=== PATIENT | female | born 1990 | race Caucasian/White ===

== ENCOUNTER 2021-03-20 21:15 | Observation (INO) | payer BC, SELFPAY ==
--- NOTE | 2021-03-20 21:15 | OBADM ---
This patient, Neida Gardner, admitted to the OB room Labor/Delivery/Recovery 106 for observation. Patient/family oriented to hospital policies and general routines including ID bracelet, bed and alarms, visiting hours, pain management, procedures, bathroom and other care routines, personal items, smoking policy, room service/diet, and visiting hours. Patient/Family are encouraged to report perceived risks to care and to ask questions if they do not understand what they are told or what they should do.
[2021-03-20 21:29] VITALS: BP 130/69; PULSE 101; RESP 20; TEMP 37.1
[2021-03-20 22:00] VITALS: BP 107/68; PULSE 96
[2021-03-20 22:23] VITALS: BMI 28.3
--- NOTE | 2021-04-17 18:47 | PM.OBTRLD ---
OB - Triage/Final Diagnosis Visit Information Comments/Additional reasons for admission: I have assessed the risk for this patient, Neida Gardner, and determined that she would benefit from observation care. Final Diagnosis (1) False labor: Code(s): O47.9 - False labor, unspecified Status: Acute
== END 2021-03-20 22:54 | disposition home or self-care (01) ==
PROVIDERS: Admitting Provider Obstetrics & Gynecology; Visit Provider Obstetrics & Gynecology
DX: O47.03 False labor before 37 completed weeks of gestation, third trimester (principal); Z3A.36 36 weeks gestation of pregnancy
CPT/HCPCS: 84112; G0378; G0379

== ENCOUNTER 2021-03-31 14:03 | Outpatient (CLI) | payer BC, SELFPAY ==
[2021-03-31 14:30] VITALS: BP 123/84; PULSE 92
[2021-03-31 14:45] VITALS: BP 122/84; PULSE 101
[2021-03-31 14:47] LABS: Basophils Percent Auto 0.2 % (0.2-1.2); Eosinophils Absolute Auto 0.1 K/mm3 (0-0.3); Eosinophils Percent Auto 0.6 % (0-4.4); Hematocrit 32.2 % (37.0-47.0); Hemoglobin 10.5 g/dL (12.0-15.0); Immature Granulocyte Absolute 0.04 K/mm3 (0.00-0.031); Immature Granulocyte Percent A 0.4 % (0-0.5); Lymphocytes Absolute Auto 1.94 K/mm3 (0.9-3.2); Lymphocytes Percent Auto 20.1 % (18.3-44.2); Mean Corpuscular HGB Conc 32.6 g/dl (32-36); Mean Corpuscular Hemoglobin 28.2 pg (26-34); Mean Corpuscular Volume 86.3 fl (80-100); Mean Platelet Volume 11.2 fl (7.4-10.4); Monocytes Absolute Auto 0.8 K/mm3 (0.1-0.6); Monocytes Percent Auto 7.8 % (2.6-8.5); Neutrophils Absolute Auto 6.8 K/mm3 (1.3-6.7); Neutrophils Percent Auto 70.9 % (45.5-73.1); Platelet Count Result 326 k/mm3 (150-375); Red Blood Count 3.73 M/mm3 (4.2-5.4); Red Cell Distribution Width 13.2 % (11.5-14.5); White Blood Count 9.7 K/mm3 (4.5-10.0)
[2021-03-31 14:55] LABS: Add Urine Microscopic? YES; Appearance Urine Cloudy (Clear); Bacteria Urine 2+ /hpf; Bilirubin Urine Negative (Negative); Blood Urine Negative (Negative); Color Urine Yellow (Yellow); Glucose Urine UA Negative (Negative); Ketones Urine Negative (Negative); Leukocyte Esterase Ur Negative LEU/UL (NEGATIVE); Mucus Urine Rare /lpf; Nitrate Urine Negative (Negative); Protein Urine 1+ mg/dL (Negative); RBC Urine 0-2 /hpf (0-2); Specific Grav Ur 1.019 (1.001-1.035); Squamous Epithelial Cell Urine Moderate /hpf (Few); Urobilinogen Urine Negative mg/dL (<2.0); WBC Urine 0-3 /hpf (0-3)
[2021-03-31 14:57] LABS: Alanine Aminotransferase 10 U/L (4-35); Albumin Level 3.4 g/dL (3.5-5.1); Alkaline Phosphatase 203 U/L (38-126); Anion Gap 7 mmol/L (8-16); Aspartate Amino Transferase 23 U/L (14-36); Bilirubin,Total 0.3 mg/dL (0.2-1.3); Blood Urea Nitrogen 16 mg/dL (7-17); Calcium 9.1 mg/dL (8.4-10.2); Carbon Dioxide 21 mmol/L (22-30); Chloride 108 mmol/L (98-107); Estimated Glomerular Filt Rate > 60; Glucose 121 mg/dL (65-105); Potassium 4.4 mmol/L (3.4-5.0); Sodium 136 mmol/L (137-145); Uric Acid 5.1 mg/dL (2.5-7.5)
[2021-03-31 15:00] VITALS: BP 111/71; PULSE 93
[2021-03-31 15:15] VITALS: BP 116/74; PULSE 95
[2021-03-31 15:20] VITALS: BP 111/71; PULSE 90; PULSE 95
[2021-03-31 15:27] LABS: Creatinine Urine 127.8 mg/dL; Total Protein Urine Random 9 mg/dL; Ur Ttl Prot Creatinine Ratio 0.07 mg/mg (0-0.20)
[2021-03-31 15:59] LABS: Hepatitis B Surface Antigen Negative (Negative)
--- NOTE | 2021-03-31 16:04 | PC.NURSE ---
amos Edward CNM reported HIP lab result. okay to discharge
== END 2021-03-31 15:50 | disposition home or self-care (01) ==
LOC: ANHOBOP 14:06 → ANHOBPP 14:07
PROVIDERS: Advanced Practice Midwife; Visit Provider Advanced Practice Midwife
DX: O13.9 Gestational [pregnancy-induced] hypertension without significant proteinuria, unspecified trimester (principal); Z3A.00 Weeks of gestation of pregnancy not specified
CPT/HCPCS: 36415; 59025; 80053; 81001; 82570; 84156; 84550; 85025; 87340; 99199

== ENCOUNTER 2021-04-03 17:30 | Outpatient (CLI) | payer BC, SELFPAY ==
[2021-04-03 17:45] VITALS: BP 127/77; PULSE 94
[2021-04-03 18:09] VITALS: TEMP 36.7
[2021-04-03 18:29] VITALS: BP 127/77; PULSE 89
== END 2021-04-03 18:30 ==
LOC: ANHOBOP 18:18 → ANHLDR 18:19
PROVIDERS: Visit Provider Obstetrics & Gynecology
DX: O41.8X90 Other specified disorders of amniotic fluid and membranes, unspecified trimester, not applicable or unspecified (principal); Z3A.00 Weeks of gestation of pregnancy not specified
CPT/HCPCS: 59025; 84112; 99199

== ENCOUNTER 2021-04-10 20:33 | Observation (INO) | payer BC, SELFPAY ==
--- NOTE | 2021-04-10 23:15 | OBADM ---
This patient, Neida Gardner, admitted to the OB room Labor/Delivery/Recovery 105 for observation. Patient/family oriented to hospital policies and general routines including ID bracelet, bed and alarms, visiting hours, pain management, procedures, bathroom and other care routines, personal items, smoking policy, room service/diet, and visiting hours. Patient/Family are encouraged to report perceived risks to care and to ask questions if they do not understand what they are told or what they should do.
--- NOTE | 2021-04-14 07:14 | P.PNOB_ITS ---
OB - Triage/Final Diagnosis Visit Information Date of evaluation: 04/14/21 Reason for evaluation: threatened labor Comments/Additional reasons for admission: I have assessed the risk for this patient, Neida Lacey Gardner, and determined that she would benefit from obse rvation care.
--- NOTE | 2021-04-14 07:14 | WPDOBADMIT ---
Obstetrics - Admit Note Admission Note: record reviewed. No pertinent additions to the history and/or any subsequent changes in the physical findings that are not consistent with the expected course of the were found. MIL cervadil GDM diet controlled SVE 1/thick soft, plan pitocin this afternoon Additions to the history and/or subsequent changes in the physical findings follow. None.
== END 2021-04-10 23:31 | disposition home or self-care (01) ==
PROVIDERS: Admitting Provider Obstetrics & Gynecology; Visit Provider Obstetrics & Gynecology
DX: O47.1 False labor at or after 37 completed weeks of gestation (principal); Z3A.39 39 weeks gestation of pregnancy
CPT/HCPCS: G0378; G0379

== ENCOUNTER 2021-04-14 00:02 | Inpatient (IN) | payer BC, SELFPAY ==
[2021-04-14] VITALS (38 sets, daily range): BP systolic 108–129; BP diastolic 61–95; PULSE 62–147; RESP 18; TEMP 36.4–36.9; BMI 29.5
--- NOTE | 2021-04-14 00:02 | LDADM ---
This patient, Neida Gardner, was admitted to Labor/Delivery/Recovery 108 on 04/14/21 at 00:02. Plans for labor, pain management and were discussed with patient. Patient/family oriented to hospital policies and general routines including ID bracelet, bed and alarms, visiting hours, pain management, procedures, bathroom and other care routines, personal items, smoking policy, room service/diet and guest tray routines, security routines, and visiting hours. Patient/Family are encouraged to report perceived risks to care and to ask questions if they do not understand what they are told or what they should do. See OBIX for further documentation.
[2021-04-14] MEDS: DINOPROSTONE 10 MG VAG INSERT VAGINAL (00:59)
[2021-04-14 01:09] LABS: Glucose Point of Care 85 mg/dl (65-105)
[2021-04-14 01:11] LABS: Basophils Percent Auto 0.2 % (0.2-1.2); Eosinophils Absolute Auto 0.1 K/mm3 (0-0.3); Eosinophils Percent Auto 0.7 % (0-4.4); Hematocrit 32.3 % (37.0-47.0); Hemoglobin 10.8 g/dL (12.0-15.0); Immature Granulocyte Absolute 0.05 K/mm3 (0.00-0.031); Immature Granulocyte Percent A 0.5 % (0-0.5); Lymphocytes Absolute Auto 2.91 K/mm3 (0.9-3.2); Lymphocytes Percent Auto 27.2 % (18.3-44.2); Mean Corpuscular HGB Conc 33.4 g/dl (32-36); Mean Corpuscular Hemoglobin 27.9 pg (26-34); Mean Corpuscular Volume 83.5 fl (80-100); Mean Platelet Volume 11.8 fl (7.4-10.4); Monocytes Percent Auto 9.5 % (2.6-8.5); Neutrophils Absolute Auto 6.6 K/mm3 (1.3-6.7); Neutrophils Percent Auto 61.9 % (45.5-73.1); Platelet Count Result 333 k/mm3 (150-375); Red Blood Count 3.87 M/mm3 (4.2-5.4); Red Cell Distribution Width 14.3 % (11.5-14.5); White Blood Count 10.7 K/mm3 (4.5-10.0)
--- NOTE | 2021-04-14 02:24 | WPDANESEPP ---
Anes - Eval Pre Procedure Procedure: Labor epidural Date/Time: 04/14/21 02:24 Surgeon: Jenna Preop Diagnosis: ABD pain with contractions Pre Op Diagnosis: Ind Patient Data Age: 30 Gender: F Height: 5 ft 4 in Weight: 78 kg Last Vital Signs Temp 98 F 04/14/21 00:53 Pulse 80 04/14/21 02:15 Resp 18 04/14/21 00:53 BP 121/78 04/14/21 02:15 Allergies Allergy/AdvReac Type Severity Reaction Status Date / Time Penicillins Allergy Hives Verified 03/17/21 14:38 Sulfa (Sulfonamide Allergy Hives Verified 03/17/21 14:38 Antibiotics) Home Medications Medication Instructions Recorded Confirmed Type prenat.vits,swetha,[id number] 1 tablet PO HS 03/17/21 03/20/21 History Laboratory Tests 04/14/21 04/14/21 04/14/21 00:38 00:38 00:53 WBC 10.7 K/mm3 H K/mm3 (4.5-10.0) RBC 3.87 M/mm3 L M/mm3 (4.2-5.4) Hgb 10.8 g/dL L g/dL (12.0-15.0) Hct 32.3 % L % (37.0-47.0) MCV 83.5 fl fl (80-100) MCH 27.9 pg pg (26-34) MCHC 33.4 g/dl g/dl (32-36) RDW 14.3 % % (11.5-14.5) Plt Count 333 k/mm3 k/mm3 (150-375) MPV 11.8 fl H fl (7.4-10.4) Immature Gran % (Auto) 0.5 % % (0-0.5) Neut % (Auto) 61.9 % % (45.5-73.1) Lymph % (Auto) 27.2 % % (18.3-44.2) Sargent % (Auto) 9.5 % H % (2.6-8.5) Eos % (Auto) 0.7 % % (0-4.4) Baso % (Auto) 0.2 % % (0.2-1.2) Lymph # (Auto) 2.91 K/mm3 K/mm3 (0.9-3.2) Sargent # (Auto) 1.0 K/mm3 H K/mm3 (0.1-0.6) Eos # (Auto) 0.1 K/mm3 K/mm3 (0-0.3) Baso # (Auto) 0.0 K/mm3 K/mm3 (0.0-0.1) Abs Immat Gran (auto) 0.05 K/mm3 H K/mm3 (0.00-0.031) Absolute Neuts (auto) 6.6 K/mm3 K/mm3 (1.3-6.7) Absolute Nucleated RBC 0.0 K/mm3 K/mm3 (0.0-0.012) Nucleated RBC % 0.0 % % (0.0-0.2) POC Capillary Glucose 85 mg/dl mg/dl (65-105) RPR Pending Patient hx anesthesia problems: none Family hx anesthesia problems: none PMFSH Past Medical History Medical History Overweight (BMI 25.0-29.9) and not yet delivered Family History Family History Grandparent Alzheimer disease Pancreatic adenocarcinoma Skin cancer (melanoma) Cerebrovascular accident Social History Social History Substance use: never Spiritual care concerns: No Exam Day of Procedure 04/14/21 02:24 Patient weight: overweight Airway: Mallampati scale class II Neurological: alert and oriented
[2021-04-14 04:13] LABS: Glucose Point of Care 84 mg/dl (65-105)
[2021-04-14 08:23] LABS: Glucose Point of Care 102 mg/dl (65-105)
[2021-04-14 08:57] LABS: Rapid Plasma Reagin Non-Reactive (NonReactive)
[2021-04-14 12:11] LABS: Glucose Point of Care 93 mg/dl (65-105)
[2021-04-14] MEDS: LACTATED RINGERS 1,000 ML 125 ML IV CONT ×2 (13:45→23:26)
[2021-04-14] MEDS: OXYTOCIN 30 UNITS/NS 500 ML 30 UNITS/500 ML BAG 125 UNITS IV CONT (14:02)
--- NOTE | 2021-04-14 14:36 | PM.OBPNLAB ---
Pain Control Date/time seen: 04/14/21 14:36 sve 1-2/60/-2 AROM min amount of clear odorless fluid
[2021-04-14 17:05] LABS: Glucose Point of Care 83 mg/dl (65-105)
[2021-04-14 20:50] LABS: Glucose Point of Care 78 mg/dl (65-105)
[2021-04-15] VITALS (125 sets, daily range): BP systolic 89–139; BP diastolic 49–123; PULSE 64–185; RESP 14–20; TEMP 36.6–37.4; O2SAT 95–100
[2021-04-15] MEDS: ONDANSETRON INJ 4 MG/2 ML VIAL IV PUSH (00:52)
[2021-04-15] MEDS: fentaNYL CITRATE INJ (*CRX) 100 MCG/2 ML VIAL 50 MCG IV PUSH (00:54)
[2021-04-15 02:23] LABS: Glucose Point of Care 118 mg/dl (65-105)
[2021-04-15] MEDS: LACTATED RINGERS 1,000 ML 100 ML IV CONT (03:01)
[2021-04-15 05:02] LABS: Glucose Point of Care 116 mg/dl (65-105)
[2021-04-15 07:38] LABS: Glucose Point of Care 113 mg/dl (65-105)
[2021-04-15] MEDS: miSOPROStol 200 MCG TABLET 1000 MCG (09:26)
[2021-04-15] MEDS: OXYTOCIN 30 UNITS/NS 500 ML 30 UNITS/500 ML BAG 6 UNITS IV CONT ×2 (09:26→09:32)
--- NOTE | 2021-04-15 09:30 | P.PCNOB_ITS ---
OB - Delivery Note Procedure Delivery date: 04/15/21 Procedure: vaginal delivery events: Gestational Diabetes Intrapartal events: None Induction method: AROM, per pitocin protocol and per cervidil protocol Delivery monitor: external FHT, external uterine and internal uterine Route of delivery: Episiotomy description: None Laceration Description: Labial (bilateral) Delivery repair: vicryl Specimen: Yes Quantitative Blood Loss (ml): 300 Anesthesia type: Epidural Disposition: floor [place] Baby Date of : 04/15/21 Time of : 09:08 Weeks of gestation at delivery: 40 gender: Male presentation: vertex position: Left Occiput Anterior Placenta delivery description: Manual Removal cord vessel description: 3 Vessels, Clamped/Cut and Around Extremity x1 score five minutes: 9
[2021-04-15] MEDS: BENZOCAINE 20% AER SPR (*SP) 56 GM CAN 1 SPRAY TOPICAL (11:36)
[2021-04-15] MEDS: WITCH HAZEL 40 PADS 1 PAD TOPICAL (11:36)
[2021-04-15] MEDS: IBUPROFEN 600 MG TABLET PO ×2 (14:27→20:54)
--- NOTE | 2021-04-15 15:05 | PC.NURSE ---
Mother called out for assist with feeding. Reviewed feeding cues, frequencies, duration of feedings, feeding elimination flow sheet, and signs of adequate intake. Demonstrated stimulation techniques to wake infant for feeding. Assisted with infant to breast. Reviewed positioning/alignment in cross cradle, holding breast in ?U? hold and guided asymmetrical latch on. Mother reports she can only feed on right breast due to IV in left arm. Infant appears to have a slightly tight frenulum. Several attempts before infant able to latch correctly and draw nipple in deeply. Infant nursed eagerly, with steady draws and occasional swallowing followed by pausing. Reviewed signs of a correct latch, effective nursing and suck swallow ratio. Infant would slip to shallow latch, mother reports tenderness. Demonstrated how to adjust latch more deeply while feeding. Mother reports she can feel change in latch and has more tugging than tenderness. Nipple care reviewed of lanolin after feedings, warm compresses and gel pads as needed. Suggested mother stimulate while feeding to increase stimulate, increase intake and to assist with maintaining deep latch. Instructed mother to call out for RN assistance if she is unable to latch infant for feeding or she has discomfort with nursing. Instructed feeding should be initiated three hours from start of last feeding or if feeding cues are noted before. Mother voiced understanding of information shared.
--- NOTE | 2021-04-15 19:26 | PC.NURSE ---
1245-Patient transferred to post room #276 via wheelchair. Support person present. Oriented to unit, room, information board, rooming in, admission packet and security measures. Patient verbalizes understanding.
[2021-04-16 04:40] VITALS: BP 101/63; PULSE 93; RESP 13; TEMP 36.6; O2SAT 97
[2021-04-16] MEDS: IBUPROFEN 600 MG TABLET PO ×2 (04:43→16:40)
[2021-04-16 05:45] LABS: Hematocrit 27.6 % (37.0-47.0); Hemoglobin 8.9 g/dL (12.0-15.0)
--- NOTE | 2021-04-16 07:47 | PM.OBPNVD ---
OB - PN: Subj Subjective Date/time seen: 04/16/21 07:47 Patient comments: no complaints baby status: doing well OB - PN: Obj Data Labs CBC & Chem 7: 04/16/21 04:53 Labs: Laboratory Results - last 24 hr 04/16/21 04:53 Hgb 8.9 L Hct 27.6 L OB - PN A/P Plan day: 1 Plan: routine care Time Spent With Patient Time: Total time spent is greater than 50% in coordination of care (as documented) at patient's floor/unit and/or counseling patient: Review of Systems Review of Systems: All systems reviewed & are unremarkable except as noted in HPI and below Exam Const: General: cooperative Nutritional Appearance: average body habitus Orientation/consciousness: oriented to person Psych: Thought process: Normal thought process present Thought content: Yes Normal thought content present Insight: Good insight present (Psych) Judgement: Good judgement present (Psych)
[2021-04-16 09:30] VITALS: BP 101/54; PULSE 83; RESP 16; TEMP 36.4; O2SAT 99
--- NOTE | 2021-04-16 09:46 | WPDANLDPN2 ---
Anes-Prog Note L&D Date/Time: 04/16/21 09:46 Comfortable throughout: labor and delivery Neuraxial method: epidural Epidural/Spinal procedure site: clean & non-tender Neuro status: Neuro function grossly intact. Cardiovascular status: normal Respiratory status: normal Airway patency: baseline Mental status: baseline Post-Op hydration status: normal Vital Signs: Last Vital Signs Temp 36.6 C 04/16/21 04:40 Pulse 93 04/16/21 04:40 Resp 13 04/16/21 04:40 BP 101/63 04/16/21 04:40 Pulse Ox 97 04/16/21 04:40 Pain score (VAS): 11/29 Post-procedural complaints: none Patient feedback: Patient satisfied with anesthetic care.
[2021-04-16] MEDS: ACETAMINOPHEN 325 MG TABLET 650 MG PO (10:04)
[2021-04-16] MEDS: POLYSACCHARIDE IRON COMPLEX 150 MG CAPSULE PO ×2 (10:04→16:40)
[2021-04-16] MEDS: MULTIVIT/MIN/PREN/FOL AC/IRON TABLET 1 TAB PO (10:04)
[2021-04-16] MEDS: DOCUSATE SODIUM 100 MG CAPSULE PO ×2 (10:04→16:40)
--- NOTE | 2021-04-16 10:45 | PC.NURSE ---
Consult with pt., mother reports she began supplementing after during the night. Mother was concerned was not satisfied with . Reviewed adequate signs of breastmilk intake, infant feeding cues, frequencies, duration of feedings and feeding elimination flow sheet. Requested mother to call out for RN/LC assistance next feeding. Instructed feeding should be initiated three hours from start of last feeding or if feeding cues are noted before. Mother voiced understanding of information shared.
--- NOTE | 2021-04-16 14:45 | PC.NURSE ---
Consult with pt., mother has not called out for assist with feeding, reporting infant is more eager and latching without difficulties. Mother states she will continue to supplement after all breastfeedings until her milk is in, her plan is to breast and bottle feed. Discussed stimulation and supply. Offered to set up mother with pumping, she does not wish to pump. Mother is feeding as required and waking to feed if needed. Infant is currently meeting outcomes for weight, output, jaundice and feeding frequencies. Mother states she feels confident to continue current feeding plan of breast/bottle at home. Reviewed transition to breast milk, signs of adequate intake, and engorgement/relief. Instructed to call ICP if intake/output less than required. Reviewed regular medications mother is taking. Information provided per Michelle. Reviewed community resources on the [employer] website and in the Mom/Baby guide. Information on outpatient services provided. Mother has no further questions at this time.
[2021-04-16 18:24] VITALS: BP 107/69; PULSE 86; RESP 16; TEMP 36.7
[2021-04-17] MEDS: IBUPROFEN 600 MG TABLET PO ×2 (00:15→07:23)
[2021-04-17 07:15] VITALS: BP 95/62; PULSE 90; RESP 20; TEMP 36.7
[2021-04-17] MEDS: DOCUSATE SODIUM 100 MG CAPSULE PO (07:23)
[2021-04-17] MEDS: POLYSACCHARIDE IRON COMPLEX 150 MG CAPSULE PO (07:23)
[2021-04-17] MEDS: MULTIVIT/MIN/PREN/FOL AC/IRON TABLET 1 TAB PO (07:23)
[2021-04-17] MEDS: MEASLES,MUMPS,RUBELLA VACCINE 0.5 ML VIAL SUB-Q (07:29)
--- NOTE | 2021-04-17 10:18 | PM.OBPNVD ---
OB - PN: Subj Subjective Date/time seen: 04/17/21 10:18 Patient comments: no complaints baby status: doing well OB - PN: Obj Data Labs CBC & Chem 7: 04/16/21 04:53 OB - PN A/P Plan day: 2 Plan: routine care and discharge home (F/U in 4 weeks) Time Spent With Patient Time: Total time spent is greater than 50% in coordination of care (as documented) at patient's floor/unit and/or counseling patient: Time with patient: less than 15 minutes Review of Systems Review of Systems: All systems reviewed & are unremarkable except as noted in HPI and below Exam Narrative: Exam Narrative: Fundus firm and vaginal flow controlled. No lower ext redness, warmth, or edema. Negative homans. Const: General: comfortable Chest: Breast/axilla inspection: normal inspection of the breasts Resp: Effort & Inspection: normal respiratory effort Cardio: Rate: regular rate GI: GI Palp: Yes Soft to palpation Psych: Appearance: grossly normal Affect: normal affect Attitude: cooperative Thought content: Yes Normal thought content present Judgement: Good judgement present (Psych)
--- NOTE | 2021-04-17 10:26 | PM.OBDSVD ---
DS: Admitting Diagnosis Admitting Diagnosis Admitting Diagnosis: Labor OB - DS: Summary OB Procedures : None OB Procedures Intrapartum: Spontaneous Vag Delivery OB Procedures: : None Time Spent with Patient Time attestation: Total time spent providing and/or coordinating discharge services: DS: Data Data Completed and Pending Pending studies at discharge: Pending at discharge 04/15/21 09:21 Surgical [PTH] Routine Discharge Plan Discharge Attending physician on discharge: Anne West Consulting providers: Sim Foster Discharging Clinician: Ynes Beyer Patient Disposition: Home, Self-Care Activity: pelvic rest Diet: as tolerated Patient Instructions: Antibiotic Form Stand Alone Forms: General Discharge Information Follow-up/Referrals: Anne West MD [Physician] - Discharge Medications: New polysaccharide iron complex 150 mg iron Capsule 150 mg PO BIDWM Qty: 60 RF: 0 Continued prenat.vits,swetha,[id number] Tablet 1 tablet PO HS RF: 0 Date of admission: 04/14/21 00:02 Primary Care Provider: PHYSICIAN,ASSOCIATE ART DIRECTOR Admitting Provider: Anne West Attending physician on admission: Anne West Condition: Stable
--- NOTE | 2021-04-17 10:58 | PC.NURSE ---
Patient viewed the discharge video Mother & Baby Care, The First Two Weeks . Patient was given the opportunity and encouraged to ask questions. Patient verbalized understanding of information shared and has been given the mother/baby guide for home reference.
== END 2021-04-17 13:50 | disposition home or self-care (01) | DRG 807 ==
LOC: ANHLDR 00:11 → ANHOB2 04-15 13:07
PROVIDERS: Advanced Practice Midwife; Admitting Provider Obstetrics & Gynecology; Visit Provider Obstetrics & Gynecology
DX: O24.429 Gestational diabetes mellitus in childbirth, unspecified control (principal); Z37.0 Single live birth; O70.0 First degree perineal laceration during delivery; O69.2XX0 Labor and delivery complicated by other cord entanglement, with compression, not applicable or unspecified; Z3A.40 40 weeks gestation of pregnancy
CPT/HCPCS: 36415; 82948; 85014; 85018; 85025; 86592; 86850; 86900; 86901; 88307; 90710; A9270; J2405; J2590; J2795; J3010; J3370; J7120

== ENCOUNTER 2021-08-01 19:35 | Emergency (ER) | payer BC, SELFPAY ==
[2021-08-01 19:47] VITALS: BP 124/72; PULSE 75; RESP 16; TEMP 37.1; O2SAT 100
--- NOTE | 2021-08-01 20:00 | ED.ABDPAIN ---
HPI - Abdominal Pain General Stated Complaint: chest pain Time Seen by Provider: 08/01/21 20:02 Source: patient and RN notes reviewed Mode of arrival: ambulatory Limitations: no limitations History of Present Illness HPI narrative: 30-year-old female presents to the [facility] with complaints of epigastric and right upper quadrant pain for the last hour hour and a half. Worse with deep breathing. Denies fevers. No nausea or vomiting. Describes it as a very sharp pain in the epigastric and right upper quadrant pain denies any past medical or surgical history. No urinary symptoms. Denies taking any medication to help with her symptoms MD elicited complaint: abdominal pain Related Data Home Medications Medication Instructions Recorded Confirmed prenat.vits,swetha,[id number] 1 tablet PO HS 03/17/21 03/20/21 sertraline mg 08/01/21 Allergies Allergy/AdvReac Type Severity Reaction Status Date / Time Penicillins Allergy Hives Verified 03/17/21 14:38 Sulfa (Sulfonamide Allergy Hives Verified 03/17/21 14:38 Antibiotics) Review of Systems Constitutional: Constitutional: Reports no additional constitutional complaints, Denies chills and Denies fever(s) Eyes: Eyes: Reports no additional eye complaints ENT: Reports system reviewed and no additional complaints, except as documented Cardiovascular: Cardiovascular: Reports no additional cardiovascular complaints and Denies chest pain Respiratory: Respiratory: Reports no additional respiratory complaints, Denies cough and Denies dyspnea Gastrointestinal: Gastrointestinal: Reports no additional gastrointestinal complaints, Denies abdominal pain, Denies nausea and Denies vomiting Genitourinary: Genitourinary: Reports no additional female genitourinary complaints Musculoskeletal: Musculoskeletal: Reports no additional musculoskeletal complaints Integumentary/Breasts: Skin/Breast: Reports system reviewed and no additional complaints, except as docu Neurologic: Reports system reviewed and no additional complaints, except as documented Psychiatric: Psychiatric: Reports no additional psychiatric complaints Allergic/Immunologic: Allergic/Immunologic: Reports no additional allergic/immunologic complaints PMFSH Past Medical History Medical History (Updated 08/01/21 @ 20:08 by Brittany Perez) Overweight (BMI 25.0-29.9) and not yet delivered Surgical History Surgical History (Updated 08/01/21 @ 20:04 by Brittany Perez) No significant past surgical history Family History Family History Grandparent Alzheimer disease Pancreatic adenocarcinoma Skin cancer (melanoma) Cerebrovascular accident Social History Social History Smoking status: Never smoker Substance use: never Spiritual care concerns: No Comments At the time of my signature, I reviewed and agree with the nursing past medical, surgical, social, and family history. There is no relevant family history pertinent to the patient complaint. Exam Const: General: healthy appearing, no acute distress and alert Nutritional Appearance: well nourished Orientation/consciousness: patient oriented x3 Limitations: no limitations HENMT: Head: normal to inspection Eyes: Pupils: Equal, round and reactive pupils present Neck: Neck: normal visual inspection, no lymphadenopathy and no meningeal signs Chest: Chest palpation & inspection: normal inspection of the chest Resp: Effort & Inspection: normal respiratory effort and no use of accessory muscles Auscultation: clear to auscultation bilaterally, no crackles, no rales, no rhonchi and no wheezes Cardio: Rate: regular rate Rhythm: regular rhythm GI: GI Palp: Yes Soft to palpation, Yes Tenderness to palpation present (GI) (Epigastric, right upper quadrant) and No Rebound tenderness present Auscultation: normal bowel sounds : General: Yes no CV
== END 2021-08-01 20:06 | disposition short-term general hospital (02) ==
PROVIDERS: Emergency Provider Nurse Practitioner
DX: R10.13 Epigastric pain (principal); R10.11 Right upper quadrant pain; R07.9 Chest pain, unspecified
CPT/HCPCS: 99212; G0463

== ENCOUNTER 2022-03-08 11:28 | Emergency (ER) | payer BC, SELFPAY ==
[2022-03-08 11:37] VITALS: BP 100/67; PULSE 78; RESP 16; TEMP 37; O2SAT 99
--- NOTE | 2022-03-08 11:52 | ED.URI ---
HPI - URI/Sore Throat General Chief Complaint: Upper Respiratory Infection Stated Complaint: wade/cough/congestion Time Seen by Provider: 03/08/22 11:52 Source: patient, family, RN notes reviewed and old records reviewed Mode of arrival: ambulatory Limitations: no limitations History of Present Illness HPI Narrative: 31-year-old female presents to the [facility] after waking up and having headache cough and sinus congestion. States last weekend she was exposed to people with the flu. No treatment prior to arrival. Denies fevers, chest pain, abdominal pain MD elicited complaint: rhinorrhea and nasal congestion Related Data Home Medications Medication Instructions Recorded Confirmed prenat.vits,swetha,[id number] 1 tablet PO HS 03/17/21 03/20/21 progesterone micronized mg 03/08/22 Allergies Allergy/AdvReac Type Severity Reaction Status Date / Time Penicillins Allergy Hives Verified 03/17/21 14:38 Sulfa (Sulfonamide Allergy Hives Verified 03/17/21 14:38 Antibiotics) Review of Systems Review of Systems: All systems reviewed & are unremarkable except as noted in HPI and below Constitutional: Constitutional: Reports no additional constitutional complaints, Denies chills, Denies fever(s) and Denies headache(s) Eyes: Eyes: Reports no additional eye complaints ENT: Reports as per HPI, Denies vertigo, Denies dizziness, Denies headache(s), Reports nasal congestion and Reports sore throat Cardiovascular: Cardiovascular: Reports no additional cardiovascular complaints, Denies chest pain, Denies syncope, Denies rapid heart rate and Denies dyspnea Respiratory: Respiratory: Reports no additional respiratory complaints, Denies cough, Denies dyspnea and Denies wheezing Gastrointestinal: Gastrointestinal: Reports no additional gastrointestinal complaints, Denies abdominal pain, Denies diarrhea, Denies nausea and Denies vomiting Musculoskeletal: Musculoskeletal: Reports as per HPI, Denies back pain, Reports myalgias and Denies numbness Integumentary/Breasts: Skin/Breast: Reports system reviewed and no additional complaints, except as docu Neurologic: Reports system reviewed and no additional complaints, except as documented, Denies vertigo, Denies dizziness, Denies syncope, Denies headache(s), Denies focal weakness and Denies numbness Psychiatric: Psychiatric: Reports no additional psychiatric complaints Allergic/Immunologic: Allergic/Immunologic: Reports no additional allergic/immunologic complaints PMFSH Past Medical History Medical History (Updated 03/08/22 @ 12:18 by Brittany Perez APRN) Overweight (BMI 25.0-29.9) and not yet delivered Surgical History Surgical History No significant past surgical history Family History Family History Grandparent Alzheimer disease Pancreatic adenocarcinoma Skin cancer (melanoma) Cerebrovascular accident Social History Social History Smoking status: Never smoker Substance use: never Spiritual care concerns: No Comments At the time of my signature, I reviewed and agree with the nursing past medical, surgical, social, and family history. There is no relevant family history pertinent to the patient complaint. Exam Const: General: cooperative, healthy appearing, no acute distress, well developed and alert Nutritional Appearance: well nourished Orientation/consciousness: patient oriented x3 Limitations: no limitations HENMT: Head: normal to inspection Ears: external ears normal, TM's normal bilaterally and EAC's normal Eyes: Conjunctivae: conjunctivae normal Pupils: Equal, round and reactive pupils present Neck: Neck: normal visual inspection, no lymphadenopathy and no meningeal signs Chest: Chest palpation & inspection: normal inspection of the chest Resp: Effort & Inspection: normal r
== END 2022-03-08 12:26 | disposition home or self-care (01) ==
PROVIDERS: Emergency Provider Nurse Practitioner
DX: J06.9 Acute upper respiratory infection, unspecified (principal)
CPT/HCPCS: 87804; 99213; G0463

== ENCOUNTER 2022-11-20 18:56 | Observation (INO) | payer BC, SELFPAY ==
[2022-11-20] VITALS (15 sets, daily range): BP systolic 110–122; BP diastolic 68–81; PULSE 92–127; TEMP 36.1; O2SAT 100; BMI 25.9
[2022-11-20] MEDS: DEXTROSE 5%/LACTATED RINGERS 1,000 ML 999 ML IV CONT (19:27)
[2022-11-20] MEDS: ONDANSETRON INJ 4 MG/2 ML VIAL IV PUSH (19:29)
--- NOTE | 2022-11-20 19:38 | PC.NURSE ---
pt came in with c/o nausea and vomiting that started today and is unable to keep anything (food or liquid down). pt spoke with Jack Edward CNM who told her to come in for evaluation. pt also states that she was airam at home every 6 minutes at home. verbal orders received from Jack Edward prior to pt arrival for D5LR bolus, zofran 4mg IV, pepcid 20mg if pt wants it, UA, and monitor. will call with results after bolus of fluid.
[2022-11-20 19:41] LABS: Add Urine Microscopic? YES; Appearance Urine Clear (Clear); Bilirubin Urine Negative (Negative); Blood Urine Negative (Negative); Color Urine Yellow (Yellow); Glucose Urine UA Negative (Negative); Ketones Urine 3+ mg/dL (Negative); Leukocyte Esterase Ur Negative LEU/UL (Negative); Nitrate Urine Negative (Negative); Protein Urine Trace mg/dL (Negative); Specific Grav Ur >= 1.030 (1.001-1.035); Urobilinogen Urine 0.2 mg/dL (<2.0)
[2022-11-20 19:44] LABS: Bacteria Urine Trace /hpf; Mucus Urine Rare /lpf; Squamous Epithelial Cell Urine Moderate /hpf (Few); WBC Urine 0-3 /hpf
--- NOTE | 2022-11-20 19:47 | OBADM ---
This patient, Neida Gardner, admitted to the OB room OB Post 117 for observation. Patient/family oriented to hospital policies and general routines including ID bracelet, bed and alarms, visiting hours, pain management, procedures, bathroom and other care routines, personal items, smoking policy, room service/diet, and visiting hours. Patient/Family are encouraged to report perceived risks to care and to ask questions if they do not understand what they are told or what they should do.
--- NOTE | 2022-11-20 20:31 | PC.NURSE ---
called Jack Edward CNM @2027- updated on pt status. pt feeling much better and ready to d/c home. US reviewed. orders received to d/c home with instructions to call if questions/concerns.
--- NOTE | 2022-11-23 07:38 | PM.OBTRLD ---
OB - Triage/Final Diagnosis Visit Information Date of evaluation: 11/20/22 Reason for evaluation: other (nausea ) Comments/Additional reasons for admission: I have assessed the risk for this patient, Neida Lacey Gardner, and determined that she would benefit from observation care. Evaluation Laboratory results: Laboratory Tests 11/20/22 19:31 Urine Color Yellow Urine Appearance Clear Urine pH 6.0 Ur Specific [place] >= 1.030 Urine Protein Trace Urine Glucose (UA) Negative Urine Ketones 3+ H Ur Blood (Man) Negative Urine Nitrate Negative Urine Bilirubin Negative Urine Urobilinogen 0.2 Leukocyte Esterase Rfl Negative Urine RBC 3-5 H Urine WBC 0-3 Ur Squamous Epith Cells Moderate H Urine Bacteria Trace Urine Mucus Rare
== END 2022-11-20 20:45 | disposition home or self-care (01) ==
PROVIDERS: Advanced Practice Midwife; Admitting Provider Obstetrics & Gynecology; Visit Provider Obstetrics & Gynecology
DX: O26.893 Other specified pregnancy related conditions, third trimester (principal); R11.0 Nausea; O24.419 Gestational diabetes mellitus in pregnancy, unspecified control; Z3A.36 36 weeks gestation of pregnancy
CPT/HCPCS: 81001; 96361; 96374; G0378; G0379; J2405; J7121

== ENCOUNTER 2022-11-29 11:30 | Outpatient (RCR) | payer BC, SELFPAY ==
[2022-10-14 09:09] VITALS: BP 106/64; PULSE 102
[2022-11-29 12:28] VITALS: BP 113/67
== END 2022-12-17 07:38 | disposition home or self-care (01) ==
LOC: ANHOBOP 11:30
PROVIDERS: Visit Provider Advanced Practice Midwife
DX: O24.419 Gestational diabetes mellitus in pregnancy, unspecified control (principal); Z3A.31 31 weeks gestation of pregnancy; Z3A.38 38 weeks gestation of pregnancy
CPT/HCPCS: 59025

== ENCOUNTER 2022-12-06 05:04 | Inpatient (IN) | payer BC, SELFPAY ==
[2022-12-06] VITALS (88 sets, daily range): BP systolic 83–140; BP diastolic 54–123; PULSE 75–119; RESP 16–18; TEMP 36.4–37.3; O2SAT 95–100; BMI 28.4
[2022-12-06 05:47] LABS: Glucose Point of Care 170 mg/dl (65-105)
[2022-12-06 05:57] LABS: Basophils Percent Auto 0.2 % (0.2-1.2); Eosinophils Absolute Auto 0.1 K/mm3 (0-0.3); Eosinophils Percent Auto 0.8 % (0-4.4); Hemoglobin 12.9 g/dL (12.0-15.0); Immature Granulocyte Absolute 0.12 K/mm3 (0.00-0.031); Immature Granulocyte Percent A 1.2 % (0-0.5); Lymphocytes Absolute Auto 1.51 K/mm3 (0.9-3.2); Lymphocytes Percent Auto 14.9 % (18.3-44.2); Mean Corpuscular HGB Conc 33.9 g/dl (32-36); Mean Corpuscular Hemoglobin 29.9 pg (26-34); Mean Corpuscular Volume 88.2 fl (80-100); Mean Platelet Volume 10.1 fl (7.4-10.4); Monocytes Absolute Auto 0.9 K/mm3 (0.1-0.6); Monocytes Percent Auto 9.1 % (2.6-8.5); Neutrophils Absolute Auto 7.5 K/mm3 (1.3-6.7); Neutrophils Percent Auto 73.8 % (45.5-73.1); Platelet Count Result 383 k/mm3 (150-375); Red Blood Count 4.31 M/mm3 (4.2-5.4); Red Cell Distribution Width 15.7 % (11.5-14.5); White Blood Count 10.1 K/mm3 (4.5-10.0)
--- NOTE | 2022-12-06 06:17 | LDADM ---
This patient, Neida Gardner, was admitted to Labor/Delivery/Recovery 104 on 12/06/22 at 05:04. Plans for labor, pain management and were discussed with patient. Patient/family oriented to hospital policies and general routines including ID bracelet, bed and alarms, visiting hours, pain management, procedures, bathroom and other care routines, personal items, smoking policy, room service/diet and guest tray routines, security routines, and visiting hours. Patient/Family are encouraged to report perceived risks to care and to ask questions if they do not understand what they are told or what they should do. See [facility] for further documentation.
[2022-12-06] MEDS: LACTATED RINGERS 1,000 ML 125 ML IV CONT ×2 (06:48→14:10)
[2022-12-06] MEDS: OXYTOCIN 30 UNITS/NS 500 ML 30 UNITS/500 ML BAG IV CONT (06:49)
--- NOTE | 2022-12-06 07:23 | WPDOBADMIT ---
Obstetrics - Admit Note Admission Note: record reviewed. No pertinent additions to the history and/or any subsequent changes in the physical findings that are not consistent with the expected course of the were found. GDMA-2, IOL 2-3/60/-2 AROM moderate amount of clear odorless fluid Additions to the history and/or subsequent changes in the physical findings follow. None.
--- NOTE | 2022-12-06 08:11 | WPDANESEPP ---
Anes - Eval Pre Procedure Procedure: labor pain management Date/Time: 12/06/22 08:11 Surgeon: Jenna Preop Diagnosis: pain during labor Pre Op Diagnosis: IOL Patient Data Age: 31 Gender: F Height: 1.68 m Weight: 80 kg Last Vital Signs Temp 97.6 F 12/06/22 06:31 Pulse 84 12/06/22 08:01 BP 112/74 12/06/22 08:01 O2 Del Method Room Air 12/06/22 06:16 Allergies Allergy/AdvReac Type Severity Reaction Status Date / Time Penicillins Allergy Hives Verified 11/17/22 13:40 Sulfa (Sulfonamide Allergy Hives Verified 11/17/22 13:40 Antibiotics) Home Medications Medication Instructions Recorded Confirmed Type prenat.vits,swetha,mgh-nrsu-ilwka 1 tablet PO HS 03/17/21 12/06/22 History sertraline 100 mg tablet 100 mg PO HS 10/14/22 12/06/22 History ferrous sulfate 325 mg (65 mg 325 mg PO DAILY 11/17/22 11/17/22 History iron) tablet insulin regular human 100 unit/mL 17 unit subcut USEASDIRECTD 11/17/22 11/17/22 History injection solution (Humulin R Regular U-100 Insulin) Laboratory Tests 12/06/22 12/06/22 12/06/22 05:41 05:47 05:47 WBC 10.1 K/mm3 H K/mm3 (4.5-10.0) RBC 4.31 M/mm3 M/mm3 (4.2-5.4) Hgb 12.9 g/dL D g/dL (12.0-15.0) Hct 38.0 % % (37.0-47.0) MCV 88.2 fl fl (80-100) MCH 29.9 pg pg (26-34) MCHC 33.9 g/dl g/dl (32-36) RDW 15.7 % H % (11.5-14.5) Plt Count 383 k/mm3 H k/mm3 (150-375) MPV 10.1 fl fl (7.4-10.4) Immature Gran % (Auto) 1.2 % H % (0-0.5) Neut % (Auto) 73.8 % H % (45.5-73.1) Lymph % (Auto) 14.9 % L % (18.3-44.2) [place] % (Auto) 9.1 % H % (2.6-8.5) Eos % (Auto) 0.8 % % (0-4.4) Baso % (Auto) 0.2 % % (0.2-1.2) Lymph # (Auto) 1.51 K/mm3 K/mm3 (0.9-3.2) [place] # (Auto) 0.9 K/mm3 H K/mm3 (0.1-0.6) Eos # (Auto) 0.1 K/mm3 K/mm3 (0-0.3) Baso # (Auto) 0.0 K/mm3 K/mm3 (0.0-0.1) Abs Immat Gran (auto) 0.12 K/mm3 H K/mm3 (0.00-0.031) Absolute Neuts (auto) 7.5 K/mm3 H K/mm3 (1.3-6.7) Absolute Nucleated RBC 0.0 K/mm3 K/mm3 (0.0-0.012) Nucleated RBC % 0.0 % % (0.0-0.2) POC Capillary Glucose 170 mg/dl H mg/dl (65-105) RPR Pending Blood Type Antibody Screen 12/06/22 05:47 WBC RBC Hgb Hct MCV MCH MCHC RDW Plt Count MPV Immature Gran % (Auto) Neut % (Auto) Lymph % (Auto) [place] % (Auto) Eos % (Auto) Baso % (Auto) Lymph # (Auto) [place] # (Auto) Eos # (Auto) Baso # (Auto) Abs Immat Gran (auto) Absolute Neuts (auto) Absolute Nucleated RBC Nucleated RBC % POC Capillary Glucose RPR Blood Type B Positive Antibody Screen Negative Patient hx anesthesia problems: none Family hx anesthesia problems: none Results Review: All pre-operative results and documents have been reviewed as part of the pre-operative evaluation. [facility] Past Medical History Medical History Overweight (BMI 25.0-29.9) and not yet delivered Surgical History Surgical History No significant past surgical history Family History Family History Grandparent Alzheimer disease Pancreatic adenocarcinoma Skin cancer (melanoma) Cerebrovascular accident Social History Social History Smoking status: Never smoker Substance use: never Lack of Transportation: No Lack of Food: Never True Current Housing: I Have Housing Concerned About Future Housing: No Difficult
[2022-12-06 09:40] LABS: Glucose Point of Care 107 mg/dl (65-105)
[2022-12-06 10:00] LABS: Rapid Plasma Reagin Non-Reactive (NonReactive)
[2022-12-06 14:13] LABS: Glucose Point of Care 68 mg/dl (65-105)
--- NOTE | 2022-12-06 15:32 | P.PCNOB_ITS ---
OB - Delivery Note Procedure Delivery date: 12/06/22 Procedure: vaginal delivery Events: Gestational Diabetes Induction method: AROM and Per Pitocin Protocol Delivery monitor: External FHT Route of delivery: Episiotomy description: None Laceration Description: Labial (right) Specimen: Yes Quantitative Blood Loss (ml): 175 Anesthesia type: Epidural [place] Baby Date of : 12/06/22 Time of : 15:18 Weeks of gestation at delivery: 39 gender: Female Weight (pounds): 7 Weight (ounces): 8 presentation: vertex position: Other (OP) Placenta delivery description: Spontaneous Cord Vessel Description: 3 Vessels, Clamped/Cut and Delayed Cord Clamping score one minute: 8 score five minutes: 9 Narrative: skin to skin and in stable condition
[2022-12-06] MEDS: OXYTOCIN 30 UNITS/NS 500 ML 30 UNITS/500 ML BAG 125 UNITS IV CONT (15:55)
--- NOTE | 2022-12-06 18:02 | OBPPTRN ---
[id number] Patient transferred to post room #284 via W/C. Support person present. Oriented to unit, room, information board, rooming in, admission packet and security measures. Patient verbalizes understanding.
[2022-12-06] MEDS: MULTIVIT/MIN/PREN/FOL AC/IRON TABLET 1 TAB PO (22:01)
[2022-12-06] MEDS: SERTRALINE HCL 50 MG TABLET 100 MG PO (22:02)
[2022-12-07 05:00] VITALS: BP 93/58; PULSE 78; RESP 18; TEMP 36.6
[2022-12-07 05:20] LABS: Hematocrit 34.1 % (37.0-47.0); Hemoglobin 11.3 g/dL (12.0-15.0)
--- NOTE | 2022-12-07 06:00 | P.PNOB_ITS ---
OB - PN: Subj Subjective Date/time seen: 12/07/22 06:00 s/p vaginal day 1 OB - PN: Obj Data Labs 12/07/22 05:04 Labs: Laboratory Results - last 24 hr 12/06/22 12/06/22 12/06/22 05:47 05:47 05:47 WBC 10.1 H RBC 4.31 Hgb 12.9 D Hct 38.0 MCV 88.2 MCH 29.9 MCHC 33.9 RDW 15.7 H Plt Count 383 H MPV 10.1 Immature Gran % (Auto) 1.2 H Neut % (Auto) 73.8 H Lymph % (Auto) 14.9 L [place] % (Auto) 9.1 H Eos % (Auto) 0.8 Baso % (Auto) 0.2 Lymph # (Auto) 1.51 [place] # (Auto) 0.9 H Eos # (Auto) 0.1 Baso # (Auto) 0.0 Abs Immat Gran (auto) 0.12 H Absolute Neuts (auto) 7.5 H Absolute Nucleated RBC 0.0 Nucleated RBC % 0.0 POC Capillary Glucose RPR Non-reactive Blood Type B Positive Antibody Screen Negative 12/06/22 12/06/22 12/07/22 09:28 13:32 05:04 WBC RBC Hgb 11.3 L Hct 34.1 L MCV MCH MCHC RDW Plt Count MPV Immature Gran % (Auto) Neut % (Auto) Lymph % (Auto) [place] % (Auto) Eos % (Auto) Baso % (Auto) Lymph # (Auto) [place] # (Auto) Eos # (Auto) Baso # (Auto) Abs Immat Gran (auto) Absolute Neuts (auto) Absolute Nucleated RBC Nucleated RBC % POC Capillary Glucose 107 H 68 RPR Blood Type Antibody Screen OB - PN A/P Plan day: 1 Plan: routine care and discharge home Time Spent With Patient Time: Total time spent is greater than 50% in coordination of care (as documented) at patient's floor/unit and/or counseling patient: Review of Systems Review of Systems: All systems reviewed & are unremarkable except as noted in HPI and below Exam Const: General: cooperative, healthy appearing and comfortable
--- NOTE | 2022-12-07 06:12 | PM.OBDSVD ---
DS: Admitting Diagnosis Discharge Date 12/07/22 Admitting Diagnosis GDMA-2, IOL OB - DS: Summary OB Procedures : None OB Procedures Intrapartum: Spontaneous Vag Delivery OB Procedures: : None Time Spent with Patient Time attestation: Total time spent providing and/or coordinating discharge services: DS: Data Data Completed and Pending Pending studies at discharge: Pending at discharge 12/06/22 15:59 Surgical [PTH] Routine Labs on day of discharge: Labs from last 24 hours 12/07/22 12/06/22 12/06/22 05:04 13:32 09:28 WBC RBC Hgb 11.3 L Hct 34.1 L MCV MCH MCHC RDW Plt Count MPV Immature Gran % (Auto) Neut % (Auto) Lymph % (Auto) [place] % (Auto) Eos % (Auto) Baso % (Auto) Lymph # (Auto) [place] # (Auto) Eos # (Auto) Baso # (Auto) Abs Immat Gran (auto) Absolute Neuts (auto) Absolute Nucleated RBC Nucleated RBC % POC Capillary Glucose 68 107 H RPR Blood Type Antibody Screen 12/06/22 12/06/22 12/06/22 05:47 05:47 05:47 WBC 10.1 H RBC 4.31 Hgb 12.9 D Hct 38.0 MCV 88.2 MCH 29.9 MCHC 33.9 RDW 15.7 H Plt Count 383 H MPV 10.1 Immature Gran % (Auto) 1.2 H Neut % (Auto) 73.8 H Lymph % (Auto) 14.9 L [place] % (Auto) 9.1 H Eos % (Auto) 0.8 Baso % (Auto) 0.2 Lymph # (Auto) 1.51 [place] # (Auto) 0.9 H Eos # (Auto) 0.1 Baso # (Auto) 0.0 Abs Immat Gran (auto) 0.12 H Absolute Neuts (auto) 7.5 H Absolute Nucleated RBC 0.0 Nucleated RBC % 0.0 POC Capillary Glucose RPR Non-reactive Blood Type B Positive Antibody Screen Negative Discharge Plan Discharge Attending physician on discharge: Anne West Discharging Clinician: Catherine Edward Patient Disposition: Home, Self-Care Activity: pelvic rest Diet: regular Patient Instructions: Antibiotic Form Stand Alone Forms: General Discharge Information Follow-up/Referrals: Catherine Edward CNM [Certified Nurse Technician Assistant] - 4 Weeks Discharge Medications: New ibuprofen 600 mg Tablet 600 mg PO Q6H PRN (Reason: Cramping) Qty: 30 0RF Continued sertraline 100 mg Tablet 100 mg PO HS prenat.vits,swetha,qgp-yams-uksvr Tablet 1 tablet PO HS ferrous sulfate 325 mg (65 mg iron) Tablet 325 mg PO DAILY Discontinued Humulin R Regular U-100 Insuln 100 unit/mL Solution 17 unit SUBCUT USEASDIRECTD Date of admission: 12/06/22 05:04 Primary Care Provider: PHYSICIAN,COLLEGE FOOTBALL COACH Admitting Provider: Anne West Attending physician on admission: Anne West Condition: Stable
--- NOTE | 2022-12-07 07:44 | WPDANLDPN2 ---
Anes-Prog Note L&D Date/Time: 12/07/22 07:44 Comfortable throughout: labor and delivery Neuraxial method: epidural Epidural/Spinal procedure site: clean & non-tender Neuro status: Neuro function grossly intact. Cardiovascular status: normal Respiratory status: normal Airway patency: baseline Mental status: baseline Post-Op hydration status: normal Vital Signs: Last Vital Signs Temp 36.6 C 12/07/22 05:00 Pulse 78 12/07/22 05:00 Resp 18 12/07/22 05:00 BP 93/58 L 12/07/22 05:00 Pulse Ox 100 12/06/22 14:59 O2 Del Method Room Air 12/06/22 06:16 Pain score (VAS): 0 I/O: Intake & Output 12/06/22 12/06/22 12/07/22 15:59 23:59 07:59 Intake Total 1000 1000 Balance 1000 1000 Post-procedural complaints: none Patient feedback: Patient satisfied with anesthetic care.
[2022-12-07 07:50] VITALS: BP 106/66; PULSE 80; RESP 20; TEMP 36; O2SAT 96
--- NOTE | 2022-12-07 08:37 | PC.NURSE ---
On 12/07/22, the student, [place], provided care and completed [facility] documentation on this patient. I have reviewed the student's documentation and agree with the findings.
[2022-12-07 11:45] VITALS: BP 102/57; PULSE 88; RESP 16; TEMP 36.9; O2SAT 96
--- NOTE | 2022-12-07 15:03 | PC.NURSE ---
[id number] Introductions were made, then consulted with patient to assess needs related to . Mother is demonstrating attempting to breastfeed her infant and discusses the?experience so far not causing pain. Mother has a history of her first child for 13 months. Resources provided for inpatient and outpatient services with mom/baby guide. Mother voiced understanding of information and states she is confident in trouble shooting any at this point . was at the breast, good rocking motion was visualized and mother states there is no pain and confirms understanding watching for visual/audible signs of swallowing. Reported to the Primary RN.
--- NOTE | 2022-12-09 07:45 | PM.OBDSVD ---
DS: Admitting Diagnosis Discharge Date 12/07/22 Admitting Diagnosis IOL, GDM DS: Discharge Diagnosis Discharge Diagnosis (1) Vaginal delivery: Code(s): O80 - Encounter for full-term uncomplicated delivery Status: Acute OB - DS: Summary OB Procedures : None OB Procedures Intrapartum: Spontaneous Vag Delivery OB Procedures: : None Time Spent with Patient Time attestation: Total time spent providing and/or coordinating discharge services: DS: Data Data Completed and Pending Pending studies at discharge: Pending at discharge 12/06/22 15:59 Surgical [PTH] Routine Discharge Plan Discharge Attending physician on discharge: Anne West Consulting providers: Catherine Edward Discharging Clinician: Catherine Edward Patient Disposition: Home, Self-Care Activity: pelvic rest Diet: regular Discharge Instructions: Education: Mom and Baby Guide Given to: Mother Follow-Up: Call your delivering provider's office for an appointment to be seen in: 4-6 Weeks Mom and baby should come to the [facility] for the follow-up appointment. Appointment Date/Time: Friday, December 09, 2022 at 11:00 am What to expect at your follow-up visit: Physical Assessment Call [phone] if you are unable to keep your appointment time. BREAST CARE: * Wear a snug supportive bra. * For engorgement discomfort: Breast Feeding: * Apply warm moist washcloths * Express milk as needed to relieve engorgement * Wear loose clothing * For sore nipples: * Identify correct latch-on * Apply warm moist washcloths before and after nursing * Air dry nipples after nursing * May apply [place] cream to nipples PERINEAL CARE: * Until bleeding stops, use your clifford bottle after urinating * Change your pad frequently throughout the day * You may take sitz baths several times a day (fill your bathtub with warm water and soak for 20 minutes.) Do NOT bathe in the water * No tub baths until seen by your physician - You may shower ACTIVITY: * Rest as much as possible. * Do not exercise or lift anything heavier than your baby (such as laundry or other children.) * Avoid stairs or driving as much as possible. * Do not put anything into the vagina. No douching, tampons, or sexual activity until seen by physician. NOTIFY PHYSICIAN IF YOU HAVE ANY QUESTIONS OR IF ANY OF THE FOLLOWING SYMPTOMS OCCUR: * If your episiotomy or incision becomes red, swollen, or more painful than what you have experienced in the hospital. * If your vaginal bleeding becomes foul smelling. * If your vaginal bleeding becomes more heavy than a period or if your bleeding changes from pink to bright red. However, you may pass an occasional walnut-sized clot once or twice for the first week . * If you experience a sharp, shooting pain in you calves. * If you discover a hard, reddened area on your breast or if you experience flu-like symptoms. DIET: * Eat regular, well-balanced meals. * Drink plenty of fluids daily. If , drink to thirst. Follow-up/Referrals: Catherine Edward CNM [Certified Nurse Motel Operator] - 4 Weeks Discharge Medications: New ibuprofen 600 mg Tablet 600 mg PO Q6H PRN (Reason: Cramping) Qty: 30 0RF Continued sertraline 100 mg Tablet 100 mg PO HS prenat.vits,swetha,ydw-enuu-kfuyh Tablet 1 tablet PO HS ferrous sulfate 325 mg (65 mg iron) Tablet 325 mg PO DAILY Discontinued Humulin R Regular U-100 Insuln 100 unit/mL Solution 17 unit SUBCUT USEASDIRECTD Date of admission: 12/06/22 05:04 Primary Care Provider: PHYSICIAN,BUS MECHANIC Admitting Provider: Anne West Attending physician on admission: Anne West Condition: Stable
[2022-12-09 10:41] VITALS: BP 125/77; PULSE 88; RESP 16; TEMP 36.9; O2SAT 99
== END 2022-12-07 19:50 | disposition home or self-care (01) | DRG 807 ==
LOC: ANHLDR 05:08 → ANHOB2 17:58
PROVIDERS: Advanced Practice Midwife; Admitting Provider Obstetrics & Gynecology; Visit Provider Obstetrics & Gynecology
DX: O24.429 Gestational diabetes mellitus in childbirth, unspecified control (principal); Z37.0 Single live birth; Z3A.39 39 weeks gestation of pregnancy; O70.0 First degree perineal laceration during delivery
CPT/HCPCS: 36415; 82948; 85014; 85018; 85025; 86592; 86850; 86900; 86901; 88307; A9270; J2590; J2795; J7120